=== PATIENT | female | born 1980 | race Caucasian/White ===

== ENCOUNTER → 2017-03-04 | Outpatient (CLI) | payer OTHER ==
--- NOTE | 2017-03-07 11:27 | MM ---
Reason for exam: clinical finding. Last mammogram was performed 6 years and 3 months ago. History: Family history of breast cancer in paternal grandmother at age 41, breast cancer in paternal aunt at age 45, and breast cancer in paternal aunt at age 32. Took hormonal contraceptives for 5 years. Indicated problem(s): palpable abnormality in the left breast. Physical Findings: Nurse did not find any significant physical abnormalities on exam. [facility] Diagnostic Mammo w CAD JEFF Bilateral CC and MLO view(s) were taken. Prior study comparison: November 24, 2010, CAD bilateral diagnostic mammogram. There are scattered fibroglandular densities. Patient reports that the lower outer quadrant palpable area is no longer apparent. No significant new findings when compared with previous films. These results were verbally communicated with the patient and result sheet given to the patient on 03/04/17. ASSESSMENT: Incomplete: need additional imaging evaluation, BI-RAD 0 RECOMMENDATION: Ultrasound of the left breast.
--- NOTE | 2017-03-07 11:29 | USB ---
Reason for exam: additional evaluation requested from abnormal screening. History: Family history of breast cancer in paternal grandmother at age 41, breast cancer in paternal aunt at age 45, and breast cancer in paternal aunt at age 32. Took hormonal contraceptives for 5 years. US Breast LT Left breast ultrasound includes all four quadrants, the retroareolar region and axilla. Finding demonstrate no cystic or solid lesion seen. Additional imaging where patient felt lump. These results were verbally communicated with the patient and result sheet given to the patient on 03/04/17. ASSESSMENT: Negative, BI-RAD 1 RECOMMENDATION: 1. Routine screening mammogram of the left breast in 1 year. 2. Manage patient on a clinical basis with regard to any suspicious palpable areas. 3. Clinical managemet of patient's reported clear nipple discharge. Suspicious discharges that would warrant further evaluation is clear or bloody spontaneous discharge that localizes to a single pore on the nipple. MTDD
== END | disposition home or self-care (01) ==
LOC: RADMAMWWP 07:35
PROVIDERS: ATTEND Family Medicine
DX: R92.2 Inconclusive mammogram (principal); N63 Unspecified lump in breast; Z80.3 Family history of malignant neoplasm of breast
CPT/HCPCS: 76641; G0204

== ENCOUNTER → 2017-11-29 | Outpatient (CLI) | payer OTHER ==
[2017-11-29 20:36] LABS: ALT 31 U/L (9-52); AST 27 U/L (14-36); Albumin 4.2 g/dL (3.5-5.0); Alkaline Phosphatase 72 U/L (38-126); Anion Gap 13 mmol/L; Blood Urea Nitrogen 7 mg/dL (7-17); Calcium 9.5 mg/dL (8.4-10.2); Carbon Dioxide 21 mmol/L (22-30); Chloride 107 mmol/L (98-107); Cholesterol 238 mg/dL (<200); Glucose 105 mg/dL (74-99); HDL Cholesterol 41 mg/dL (40-60); Sodium 141 mmol/L (137-145); Total Bilirubin 0.2 mg/dL (0.2-1.3); Total Protein 6.7 g/dL (6.3-8.2); Triglycerides 428 mg/dL (<150)
[2017-11-29 20:37] LABS: Potassium 3.5 mmol/L (3.5-5.1)
[2017-11-29 20:50] LABS: Basophils # (A) 0.1 k/uL (0-0.2); Basophils % (A) 1 %; Eosinophils # (A) 0.2 k/uL (0-0.7); Eosinophils % (A) 2 %; HCT 42.5 % (34.0-46.0); HGB 13.9 gm/dL (11.4-16.0); Lymphocytes # (A) 2.9 k/uL (1.0-4.8); Lymphocytes % (A) 32 %; MCH 32.6 pg (25.0-35.0); MCHC 32.7 g/dL (31.0-37.0); MCV 99.9 fL (80.0-100.0); Mean Platelet Volume 7.2; Monocytes # (A) 0.3 k/uL (0-1.0); Monocytes % (A) 4 %; Neutrophils # (A) 5.6 k/uL (1.3-7.7); Neutrophils % (A) 61 %; Platelet Count 265 k/uL (150-450); RBC 4.25 m/uL (3.80-5.40); RDW 12.9 % (11.5-15.5); WBC 9.2 k/uL (3.8-10.6)
[2017-11-29 20:52] LABS: T4, Free (Free Thyroxine) 0.82 ng/dL (0.78-2.19)
== END | disposition home or self-care (01) ==
LOC: MMGSC 10:33
PROVIDERS: ATTEND Family Medicine
DX: Z00.00 Encounter for general adult medical examination without abnormal findings (principal)
CPT/HCPCS: 36415; 80053; 80061; 84439; 84443; 85025